=== PATIENT | female | born 1940 | race Caucasian/White ===

== ENCOUNTER → 2016-08-07 | Outpatient (CLI) | payer OTHER ==
[~2016-08-07] MED LIST: ALLEGRA; ALLEGRA PO; ALLEGRA60 M1 PO; ALPRAZOLAM; ALPRAZOLAM PO; BENZONATATE PO; CALCIUM500 MG PO; CELEBREX; CELEBREX PO; CELECOXIB200 MG PO; COUMADIN; COUMADIN PO; COUMADIN1 MG PO; COUMADIN5 MG PO; DESYREL150 M1 PO; DULERA 100 MCG/13 GM INH; KCL PO; LASIX; LASIX PO; LIPITOR; LIPITOR PO; METHADONE; MICRO-K; NASONEX17 GM; NEURONTIN; NEURONTIN100 MG PO; NEURONTIN800 MG PO; NORCO 10/325 TA1 TAB PO; NUCYNTA100 MG PO; OXYGEN PRN; OXYIR5 MG; PHENERGAN PO; SENNA S TABLET1 TAB; TRACLEER; TRACLEER PO; TRACLEER62.5 MG PO; TRAZODONE; TRAZODONE PO; VIT B-12 INJ; VITAMIN D1000 UNI1 PO; VITAMIN D250000 UNIT PO; XANAX1 MG PO
--- NOTE | ~2016-08-07 | CR20 ---
[facility] A Service [facility] RADIOLOGY TEXT RESULTS PATIENT: YULI GARCIA LOCATION: [facility] : 42 UNIT #: [id number] AGE: [address]: Belkis Bello SEX: F ORDER DR: [id number] [address] [address] [id number] O MR#: [id number] Acc #: [id number] NAME: YULI GARCIA : 1940 SEX: F STUDY DATE/TIME: 08/07/2016 16:46 UNIT: [facility] ROOM: STUDY DESCRIPTION: CR Ankle Min 3 Views Lt Attending Physician: Belkis Bello A.P.R.N. Ordering Physician: Belkis Bello A.P.R.N. Primary Care Physician: Belkis Bello A.P.R.N. MEDICAL IMAGING REPORT This report is preliminary unless electronic signature is present. EXAM Left ankle. DATE OF EXAM 08/07/2016 INDICATIONS Pain in the entire ankle and patella. Injury 2 weeks ago after falling down the back steps at home. REPORT 3 views of the left ankle. COMPARISON No comparisons. FINDINGS The bones are osteoporotic. There is moderate lateral and mild medial soft tissue swelling. No acute fracture. There is mild degenerative change in the midfoot. IMPRESSION 1. Mild degenerative changes. Soft tissue swelling laterally, but no acute fracture. Dictated by... Leroy Barron M.D. THIS IS AN ELECTRONICALLY VERIFIED REPORT Leroy Barron M.D. at 08/09/2016 11:08 AM NEREYDAY/gaviota [facility] A Service of [facility] RADIOLOGY TEXT RESULTS PATIENT: YULI GARCIA LOCATION: [facility] : 41 UNIT #: [id number] AGE: [address]: Belkis Bello SEX: F ORDER DR: TD: 08/08/2016 19:35 JOB #: [id number] MEDICAL IMAGING REPORT Page 1 of 1
--- NOTE | ~2016-08-07 | CR173 ---
[facility] A Service 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 Ordering Physician: Belkis Bello A.P.R.N. Primary Care Physician: Belkis Bello A.P.R.N. MEDICAL IMAGING REPORT This report is preliminary unless electronic signature is present. EXAM Right knee 08/07/2016 INDICATIONS 76-year-old female complaining of pain in the patella that began 2 weeks ago after a fall down the back steps at home. TECHNIQUE 3 views right knee no comparisons. FINDINGS The bones are osteoporotic. There is mild degenerative change in the right knee related to joint space narrowing and osteophytosis and spurring. No acute fracture. No joint effusion. Incidental fabella. There is a nonspecific mixed lucent and sclerotic bone lesion in the proximal third shaft of the tibia most likely representing a bone infarct. No focal erosive or aggressive features. IMPRESSION 1. Osteoporosis with degenerative changes. No acute fracture. 2. 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 Dictated by... Leroy Barron M.D. THIS IS AN ELECTRONICALLY VERIFIED REPORT Leroy Barron M.D. at 08/09/2016 11:08 AM CARYN/kimberly TD: 08/08/2016 19:42 JOB #: [id number] [facility] A Service [facility] RADIOLOGY TEXT RESULTS PATIENT: YULI GARCIA LOCATION: [facility] : 41 UNIT #: [id number] AGE: [address]: Belkis Bello SEX: F ORDER DR: MEDICAL IMAGING REPORT Page 1 of 1
== END | disposition home or self-care (01) ==
LOC: SRAD 16:34
DX: M25.572 Pain in left ankle and joints of left foot (principal); M25.561 Pain in right knee; M79.89 Other specified soft tissue disorders; M81.0 Age-related osteoporosis without current pathological fracture
CPT/HCPCS: 73562; 73610